=== PATIENT | male | born 1970 | race African-American/Black ===

== ENCOUNTER → 2022-01-29 | Outpatient (CLI) | payer OTHER ==
--- NOTE | 2022-01-29 13:58 | RAD ---
XR KNEE 1-2 VIEWS History: Reason: CHRONIC BILAT KNEE PAIN / Spl. Instructions: / History: Technique: 2 views bilateral knees. Comparison: None. Findings: Right knee: Moderate right knee degenerative changes most prominent within the medial compartment. No dislocation. No acute fracture. No significant knee joint effusion. Left knee: Moderate left knee degenerative changes most prominent within the medial compartment. No d islocation. No acute fracture. No significant knee joint effusion. Impression: 1. Moderate bilateral knee DJD, left greater than right. Electronically signed by: Elias Martinez DO (01/29/2022 1:55 PM) [id number]
== END ==
LOC: RAD 13:22
PROVIDERS: ATTEND Physician Assistant
DX: M17.0 Bilateral primary osteoarthritis of knee (principal)
CPT/HCPCS: 73560-50